=== PATIENT | female | born 1950 | race Two or more races ===

== ENCOUNTER → 2018-02-13 | Outpatient (CLI) | payer MEDICARE, OTHER ==
[2018-02-13 09:33] LABS: Basophils # (auto) 0 uL; Eosinophils # (auto) 0 uL; Hematocrit 31.4 % (36.0-46.0); Lymphocytes # (auto) 0.9 uL; Monocytes # (auto) 0.2 uL; Neutrophils # (auto) 1.2 uL; Red Blood Cells 3.08 10^6/uL (4.0-5.20); White Blood Cell 2.4 10^3/uL (4.4-10.8)
[2018-02-13 09:35] LABS: Basophils % (auto) 1.2 % (0.0-2.0); Eosinophils % (auto) 1.8 % (0.0-7.0); Hemoglobin 10.6 g/dL (12.2-16.2); Lymphocytes % (auto) 36.4 % (10.0-50.0); Mean Corpuscular Hemoglobin 34.3 pg (28.0-32.0); Mean Corpuscular Hgb Conc. 33.6 g/dL (32.0-36.0); Mean Corpuscular Volume 102.1 fL (80.0-100.0); Neutrophils % (auto) 51.6 % (37.0-80.0); Nucleated Red Blood Cells % 0.1 %; Platelet Count (auto) 305 10^3/uL (140-450); Red Cell Distribution Width 17.1 % (11.8-14.3)
[2018-02-13 10:26] LABS: Urine Bacteria NONE SEEN /hpf (None Seen); Urine Blood Negative /uL (Negative); Urine Mucus FEW (None Seen); Urine Specific Gravity 1.018 (1.001-1.035); Urine WBC 3 /hpf (0 - 5)
[2018-02-13 11:12] LABS: Albumin 1.8 g/dL (3.4-5.0); BUN/Creatinine Ratio 11.8; Bilirubin, Total 0.4 mg/dL (0.2-1.0); Calcium 6.9 mg/dL (8.5-10.1); Potassium 3.3 mmol/L (3.5-5.1); Total Protein 4.7 g/dL (6.4-8.2)
== END | disposition home or self-care (01) ==
LOC: LAB 09:13
DX: Z00.01 Encounter for general adult medical examination with abnormal findings (principal); R60.0 Localized edema
CPT/HCPCS: 36415; 80053; 80061; 81001; 84443; 85025

== ENCOUNTER → 2018-03-12 | Outpatient (CLI) | payer MEDICARE, OTHER ==
[2018-03-12 12:25] LABS: Basophils # (auto) 0 uL; Eosinophils # (auto) 0 uL; Lymphocytes # (auto) 0.6 uL; Monocytes # (auto) 0.2 uL; Red Cell Distribution Width 17.7 % (11.8-14.3); White Blood Cell 2.9 10^3/uL (4.4-10.8)
[2018-03-12 12:27] LABS: Basophils % (auto) 0.5 % (0.0-2.0); Hematocrit 31.6 % (36.0-46.0); Hemoglobin 10.8 g/dL (12.2-16.2); Lymphocytes % (auto) 22.4 % (10.0-50.0); Mean Corpuscular Hemoglobin 35.5 pg (28.0-32.0); Mean Corpuscular Hgb Conc. 34.1 g/dL (32.0-36.0); Mean Corpuscular Volume 104.1 fL (80.0-100.0); Monocytes % (auto) 6.5 % (0.0-12.0); Neutrophils % (auto) 69.6 % (37.0-80.0); Platelet Count (auto) 280 10^3/uL (140-450); Red Blood Cells 3.03 10^6/uL (4.0-5.20)
[2018-03-12 12:35] LABS: INR 1.14 (0.9-1.15); Partial Thromboplastin Time 30.2 sec (22.64-33.71); Prothrombin Time 12.4 sec (9.37-12.3)
[2018-03-12 14:12] LABS: Albumin 1.9 g/dL (3.4-5.0); BUN/Creatinine Ratio 12.2; Bilirubin, Total 0.3 mg/dL (0.2-1.0); Calcium 7.1 mg/dL (8.5-10.1); Potassium 3.1 mmol/L (3.5-5.1); Pre Albumin 7.9 mg/dL (20.0-40.0); Total Protein 4.9 g/dL (6.4-8.2)
== END | disposition home or self-care (01) ==
LOC: LAB 11:38
PROVIDERS: ATTEND Internal Medicine
DX: E83.51 Hypocalcemia (principal); M62.81 Muscle weakness (generalized); E78.5 Hyperlipidemia, unspecified; E46 Unspecified protein-calorie malnutrition; Z85.028 Personal history of other malignant neoplasm of stomach
CPT/HCPCS: 36415; 80053; 82040; 82550; 82607; 85025; 85610; 85730